=== PATIENT | male | born 1995 | race Caucasian/White ===

== ENCOUNTER → 2018-02-26 | Day surgery (SDC) | payer OTHER ==
--- NOTE | 2018-02-26 15:45 | RADIOLOGY REPORT (SQ) ---
EXAM DESCRIPTION: ARTHRO SHOULDER INJECTION; FLUORO/NEEDLE PLACEMENT COMPLETED DATE/TIME: 02/26/2018 3:11 pm REASON FOR STUDY: LABRAL TEAR COMPARISON: None. FLUOROSCOPY TIME: 13 seconds 1 digital radiographic image saved to PACS. LIMITATIONS: None. PROCEDURE: Procedure, risks, benefits and alternatives explained to patient who then gave written co nsent. The posterior left glenohumeral joint was marked and a time out was called for correct proced ure verification. Posterior entry site marked using fluoroscopic guidance. Shoulder prepped and titus ped using sterile technique. Local anesthesia achieved using 8 mL of 1% lidocaine injection. Hypode rmic needle introduced into the joint space under direct fluoroscopic visualization. Non-ionic contra st instilled to confirm intra-articular position. Dilute gadolinium solution then injected. Needle r emoved and entry site covered with sterile bandage. No immediate complications noted. TECHNIQUE: Digital images acquired during fluoroscopy and stored on PACS. Patient immediately take n to the MR suite for additional imaging. INJECTION LOCATION: Left posterior glenohumeral joint CONTRAST TYPE AND AMOUNT: 1 mL of Isovue-300 was injected to confirm intra-articular needle placement followed by 10 mL of dilute Dotarem/Saline mixture. IMPRESSION: SUCCESSFUL NEEDLE PLACEMENT AND INJECTION FOR LEFT SHOULDER MR ARTHROGRAM USING POSTERIO R APPROACH. COMMENT: Quality ID 145: Final reports for procedures using fluoroscopy that document radiation exp osure indices, or exposure time and number of fluorographic images (if radiation exposure indices are not available) TECHNICAL DOCUMENTATION: JOB ID: [id number] [employer]- All Rights Reserved Reading location - IP/workstation name: [facility]
--- NOTE | 2018-02-26 15:45 | RADIOLOGY REPORT (SQ) ---
EXAM DESCRIPTION: ARTHRO SHOULDER INJECTION; FLUORO/NEEDLE PLACEMENT COMPLETED DATE/TIME: 02/26/2018 3:11 pm REASON FOR STUDY: LABRAL TEAR COMPARISON: None. FLUOROSCOPY TIME: 13 seconds 1 digital radiographic image saved to PACS. LIMITATIONS: None. PROCEDURE: Procedure, risks, benefits and alternatives explained to patient who then gave written co nsent. The posterior left glenohumeral joint was marked and a time out was called for correct proced ure verification. Posterior entry site marked using fluoroscopic guidance. Shoulder prepped and titus ped using sterile technique. Local anesthesia achieved using 8 mL of 1% lidocaine injection. Hypode rmic needle introduced into the joint space under direct fluoroscopic visualization. Non-ionic contra st instilled to confirm intra-articular position. Dilute gadolinium solution then injected. Needle r emoved and entry site covered with sterile bandage. No immediate complications noted. TECHNIQUE: Digital images acquired during fluoroscopy and stored on PACS. Patient immediately take n to the MR suite for additional imaging. INJECTION LOCATION: Left posterior glenohumeral joint CONTRAST TYPE AND AMOUNT: 1 mL of Isovue-300 was injected to confirm intra-articular needle placement followed by 10 mL of dilute Dotarem/Saline mixture. IMPRESSION: SUCCESSFUL NEEDLE PLACEMENT AND INJECTION FOR LEFT SHOULDER MR ARTHROGRAM USING POSTERIO R APPROACH. COMMENT: Quality ID 145: Final reports for procedures using fluoroscopy that document radiation exp osure indices, or exposure time and number of fluorographic images (if radiation exposure indices are not available) TECHNICAL DOCUMENTATION: JOB ID: [id number] [employer]- All Rights Reserved Reading location - IP/workstation name: [facility]-RR
--- NOTE | 2018-02-27 18:06 | RADIOLOGY REPORT (SQ) ---
EXAM DESCRIPTION: MRI LT UPPER JOINT WITH COMPLETED DATE/TIME: 02/26/2018 5:57 pm REASON FOR STUDY: LABRAL TEAR COMPARISON: None. TECHNIQUE: Left shoulder images acquired and stored on PACS. Oblique coronal, oblique sagittal, and axial imaging to include fat sensitive sequences as T1, water sensitive sequences as FST2/STIR, and c ontrast sensitive sequences as FST1. LIMITATIONS: None. FINDINGS: JOINT DISTENTION: Extensive ventral extravasation of contrast. Joint is still felt to be adequately distended for diagnostic purposes. No loose bodies. BONE MARROW AND CORTEX: Normal. AC JOINT: Intact without overgrowth or significant widening. GLENOHUMERAL JOINT: No subluxation or dislocation. No focal chondral lesions detected. ROTATOR CUFF: No high-grade partial or full thickness cuff tear identified. No cuff muscle atrophy. Rotator interval intact. LABRUM AND BICEPS LABRAL COMPLEX: No evidence of significant labral tear. Biceps tendon intact and n ormal in location. INFERIOR LABRAL COMPLEX: No overt labral tear or paralabral cyst. ADJACENT SOFT TISSUES: No axillary adenopathy or regional mass. OTHER: No other significant finding. IMPRESSION: 1. No internal derangement of the left shoulder appreciated. Specifically, cuff looks i ntact and there is no evidence of labral tear or biceps pathology. TECHNICAL DOCUMENTATION: JOB ID: [id number] [employer]- All Rights Reserved Reading location - IP/workstation name: [email or web address]
== END ==
LOC: RAD 14:24
PROVIDERS: ATTEND Orthopaedic Surgery
DX: S43.492A Other sprain of left shoulder joint, initial encounter (principal); X58.XXXA Exposure to other specified factors, initial encounter
CPT/HCPCS: 23350; 77002